=== PATIENT | female | born 1990 | race Caucasian/White ===

== ENCOUNTER 2021-01-07 16:30 | Emergency (ER) | payer SELFPAY ==
[~2021-01-07] VITALS: Ht 157.5 cm; Wt 49.9 kg
[2021-01-07] MEDS ORDERED: XANAX0.5 MG PO (16:41)
[2021-01-07] MEDS ORDERED: LAMICTAL XR300 MG PO (16:41)
[2021-01-07] MEDS ORDERED: EFFEXOR XR150 MG PO (16:42)
[2021-01-07] MEDS ORDERED: HYDROXYZINE HCL25 MG PO (16:42)
--- NOTE | 2021-01-09 13:35 | EKG ---
[facility] [address] [facility] [place] [address] Signed Normal sinus rhythm Septal infarct , age undetermined Abnormal ECG No previous ECGs available Confirmed by MISAEL BELL MD ([id number] on 01/09/2021 1:35:34 PM Electronically Signed By: MISAEL BELL MD 01/09/21 1335 PATIENT NAME: DEVYN SINGLETON Electrocardiogram DATE OF : 88 PHYSICIAN: MISAEL BELL MD REPORT #: [id number] REPORT IS CONFIDENTIAL AND NOT TO BE RELEASED WITHOUT AUTHORIZATION
== END 2021-01-07 18:40 | disposition home or self-care (01) ==
LOC: ED 16:30
DX: R55 Syncope and collapse (principal); Z79.899 Other long term (current) drug therapy
CPT/HCPCS: 80053; 83735; 85025; 93005; 93010; 99285-25